=== PATIENT | male | born 1975 | race Caucasian/White ===

== ENCOUNTER 2020-10-21 06:50 | Outpatient (NON) | payer OTHER, SELFPAY ==
[2020-10-21 18:45] LABS: SARS-CoV-2 RNA PCR Negative
== END 2020-10-21 06:51 ==
PROVIDERS: PCP Nurse Practitioner Family; Visit Provider Nurse Practitioner Family
DX: J32.9 Chronic sinusitis, unspecified (principal); Z20.828 Contact with and (suspected) exposure to other viral communicable diseases
CPT/HCPCS: 87635; C9803; U0003

== ENCOUNTER 2020-12-02 11:57 | Outpatient (CLI) | payer OTHER, SELFPAY ==
[2020-12-02 17:36] LABS: Alanine Aminotransferase 63 U/L (4-50); Albumin Level 4.1 g/dL (3.5-5.1); Alkaline Phosphatase 77 U/L (38-126); Anion Gap 7 mmol/L (8-16); Aspartate Amino Transferase 59 U/L (17-59); Bilirubin,Total 0.5 mg/dL (0.2-1.3); Blood Urea Nitrogen 17 mg/dL (9-20); Calcium 9.1 mg/dL (8.4-10.2); Carbon Dioxide 30 mmol/L (22-30); Chloride 102 mmol/L (98-107); Estimated Glomerular Filt Rate > 60; Glucose 246 mg/dL (75-110); Potassium 4.4 mmol/L (3.4-5.0); Sodium 139 mmol/L (137-145)
== END 2020-12-02 11:58 | disposition home or self-care (01) ==
LOC: ANHLAB 11:59
PROVIDERS: PCP Nurse Practitioner Family; Visit Provider Nurse Practitioner Family
DX: R74.8 Abnormal levels of other serum enzymes (principal)
CPT/HCPCS: 36415; 80053

== ENCOUNTER 2021-03-13 10:57 | Outpatient (CLI) | payer OTHER, SELFPAY ==
--- NOTE | ~2021-03-13 | US_ITS ---
EXAMINATION: US abdomen limited EXAM DATE: 03/13/2021 11:28 INDICATION: Elevated liver enzymes. TECHNIQUE: Multiple grayscale and Doppler images of the abdomen right upper quadrant were obtained (b y a technologist who performed the scan) and subsequently reviewed. Comparison is made to prior exami nation from 03/31/2011. FINDINGS: The pancreatic head and body are normal in appearance. The pancreatic tail is not visualized. There is echogenic liver parenchyma with poor penetration, hepatic steatosis. There are no focal liver le sions identified. There is no evidence of intrahepatic biliary duct dilation. Portal venous flow w as seen in the hepatopedal, normal direction and has normal Doppler waveform. No right-sided hydrone phrosis. Common bile duct measures 4 mm, which is normal. The gallbladder wall is normal in thickness, with ex pected amount of distention. No sonographic evidence of pericholecystic fluid. There is no cholelit hiases. Technologist performing exam reports patient did not demonstrate sonographic Mansfield's sign. Please note that this sign is less reliable in patients who have received pain medication. IMPRESSION: 1. Hepatic steatosis. Reviewed, dictated and finalized at location A. IMPRESSION: 1. Hepatic steatosis.
== END 2021-03-13 10:58 | disposition home or self-care (01) ==
PROVIDERS: PCP Nurse Practitioner Family; Visit Provider Nurse Practitioner Family
DX: R74.8 Abnormal levels of other serum enzymes (principal); K76.0 Fatty (change of) liver, not elsewhere classified
CPT/HCPCS: 76705

== ENCOUNTER 2021-06-09 16:42 | Emergency (ER) | payer OTHER, SELFPAY ==
[2021-06-09 17:21] VITALS: BP 153/88; PULSE 70; RESP 18; TEMP 36.2; O2SAT 98
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
== END 2021-06-09 18:40 | disposition home or self-care (01) ==
PROVIDERS: Emergency Provider Emergency Medicine; PCP Nurse Practitioner Family
DX: S39.012A Strain of muscle, fascia and tendon of lower back, initial encounter (principal); V89.2XXA Person injured in unspecified motor-vehicle accident, traffic, initial encounter; F32.9 Major depressive disorder, single episode, unspecified; E11.9 Type 2 diabetes mellitus without complications; I10 Essential (primary) hypertension; E03.9 Hypothyroidism, unspecified
CPT/HCPCS: 99283

== ENCOUNTER 2022-09-23 19:12 | Inpatient (IN) | payer OTHER, SELFPAY ==
[2022-09-23] VITALS (8 sets, daily range): BP systolic 142–173; BP diastolic 89–96; PULSE 85–104; RESP 16–18; TEMP 36.3; O2SAT 95–97
--- NOTE | ~2022-09-23 | XR_ITS ---
EXAMINATION: XR chest 2V 09/23/2022 20:04 INDICATION: Chest pain and shortness of breath PROCEDURE: PA and lateral views of the chest COMPARISON: Comparison to multiple prior studies sequentially, with oldest reviewed study dated 11/2012. FINDINGS: The lungs are clear. The cardiomediastinal silhouette is within normal limits. There are no pleural effusions. There is no pneumothorax suspected. IMPRESSION: 1: NO ACUTE CARDIOPULMONARY DISEASE. Reviewed, dictated and finalized at location A. SHEAR OPERATOR
--- NOTE | 2022-09-23 19:13 | ECG_ITS ---
Measurements Intervals [place] Rate: 85 P: 44 DC: 233 QRS: 81 QRSD: 110 T: 69 QT: 347 QTc: 413 Interpretive Statements SINUS RHYTHM WITH FIRST DEGREE AV BLOCK LOW QRS VOLTAGE IN PRECORDIAL LEADS [QRS DEFLECTION < 1.0 mV IN CHEST LEADS] ANTERIOR MYOCARDIAL INFARCTION , OF INDETERMINATE AGE [40+ ms Q WAVE AND/OR ST/T ABNORMALITY IN V3/V4] COMPARED TO ECG 05/17/2019 15:17:35 MYOCARDIAL INFARCT FINDING NOW PRESENT Electronically Signed On 09-24-2022 10:18:34 DIRECTOR OF REGULATORY AFFAIRS by Gia Clark M.D.
[2022-09-23 19:40] LABS: Basophils Absolute Auto 0.1 K/mm3 (0.0-0.1); Basophils Percent Auto 0.7 % (0.2-1.2); Eosinophils Absolute Auto 0.2 K/mm3 (0-0.3); Eosinophils Percent Auto 1.4 % (0-4.4); Hematocrit 41.8 % (42.0-52.0); Hemoglobin 13.9 g/dL (14.0-18.0); Lymphocytes Absolute Auto 1.24 K/mm3 (0.9-3.2); Lymphocytes Percent Auto 11.9 % (18.3-44.2); Mean Corpuscular HGB Conc 33.3 g/dl (32-36); Mean Corpuscular Volume 90.1 fl (80-100); Mean Platelet Volume 10.2 fl (7.4-10.4); Monocytes Absolute Auto 0.6 K/mm3 (0.1-0.6); Monocytes Percent Auto 5.5 % (2.6-8.5); Neutrophils Absolute Auto 8.3 K/mm3 (1.3-6.7); Neutrophils Percent Auto 79.5 % (45.5-73.1); Platelet Count Result 200 k/mm3 (150-375); Red Blood Count 4.64 M/mm3 (4.6-6.20); Red Cell Distribution Width 13.1 % (11.5-14.5); White Blood Count 10.4 K/mm3 (4.5-10.0)
[2022-09-23 19:50] LABS: INR 1.1; Partial Thromboplastin Time 26.6 SECONDS (22.3-36.8); Prothrombin Time 13.6 Seconds (11.1-14.7)
[2022-09-23 19:55] LABS: Alanine Aminotransferase 68 U/L (6-50); Albumin Level 4.5 g/dL (3.5-5.1); Alkaline Phosphatase 63 U/L (38-126); Anion Gap 9 mmol/L (8-16); Aspartate Amino Transferase 55 U/L (17-59); Bilirubin,Total 0.5 mg/dL (0.2-1.3); Blood Urea Nitrogen 12 mg/dL (9-20); Calcium 8.8 mg/dL (8.4-10.2); Carbon Dioxide 27 mmol/L (22-30); Chloride 99 mmol/L (98-107); Estimated CRCL calculation 142 ml/min; Estimated Glomerular Filt Rate > 60; Glucose 212 mg/dL (65-110); Lipase 129 U/L (23-300); Potassium 4.2 mmol/L (3.4-5.0); Sodium 135 mmol/L (137-145)
[2022-09-23 20:11] LABS: Troponin I 0.262 ng/mL (0.000-0.034)
[2022-09-23] MEDS: NITROGLYCERIN SL 0.4 MG TABLET SUBLINGUAL (20:43)
--- NOTE | 2022-09-23 20:43 | ECG_ITS ---
Measurements Intervals [place] Rate: 88 P: 37 TN: 225 QRS: 101 QRSD: 106 T: 65 QT: 352 QTc: 427 Interpretive Statements SINUS RHYTHM WITH FIRST DEGREE AV BLOCK MARKED RIGHT AXIS DEVIATION [QRS AXIS > 100] LOW QRS VOLTAGE IN PRECORDIAL LEADS [QRS DEFLECTION < 1.0 mV IN CHEST LEADS] ANTERIOR MYOCARDIAL INFARCTION , OF INDETERMINATE AGE [40+ ms Q WAVE AND/OR ST/T ABNORMALITY IN V3/V4] COMPARED TO ECG 09/23/2022 19:23:12 NO SIGNIFICANT CHANGES Electronically Signed On 09-24-2022 10:19:27 [employer]IST by Gia Clark M.D.
--- NOTE | 2022-09-23 20:44 | ED.CHESTPAIN ---
HPI - Chest Pain General Chief Complaint: Chest Pain Stated Complaint: chest pain Time Seen by Provider: 09/23/22 20:26 History of Present Illness HPI narrative: 46-year-old male history of hypertension, diabetes presented with chest pain. Per patient around 8 in the morning he began having left-sided chest pain described as pressure-like radiating to left arm. The pain persisted so he presented to the ED for further evaluation. He reports that is worse with exercise. He denies diaphoresis, nausea vomiting, fevers chills, shortness of breath, abdominal pain, sick contacts, dysuria, diarrhea. He reports taking 81 mg of aspirin in the morning. He was given 325 mg of chewable aspirin by EMS on route. Related Data Home Medications Medication Instructions Recorded Confirmed atorvastatin 80 mg tablet 06/09/21 buspirone 5 mg tablet mg 06/09/21 gabapentin 600 mg tablet 06/09/21 glimepiride 2 mg tablet mg 06/09/21 levothyroxine 112 mcg tablet 06/09/21 metformin 1,000 mg tablet mg 06/09/21 Allergies Allergy/AdvReac Type Severity Reaction Status Date / Time levofloxacin Allergy Severe Anaphylactic Verified 09/23/22 19:29 Shock Quinolones Allergy Severe RASH AND Verified 09/23/22 19:29 S.O.B. codeine Allergy Mild RASH, Verified 09/23/22 19:29 SHORTNESS OF BREATH PMFSH Past Medical History Medical History Depression Diabetes Diverticulitis Hyperlipidemia Hypertension Hypothyroidism Surgical History Surgical History History of carpal tunnel surgery Family History Family History Mother Hypertension Acute myocardial infarction Father Family history of lymphoma Other Diabetes mellitus Family history of elevated blood lipids Social History Social History Smoking status: Never smoker Alcohol intake: never Gender identity (if verbalized by the patient): Male Exam Narrative: APPEARANCE: Alert, in apparent pain, unable to sit still, non diaphoretic, elevated BMI HEAD: atraumatic EYES: Pupils equal round an reactive to light, extra ocular movements intact, no conjunctival injection NOSE: Normal no drainage NECK: Supple, without meningismus RESPIRATORY: Lungs clear to auscultation bilaterally, no wheezes/rales/rhonchi, breathing comfortably CARDIOVASCULAR: Regular rate and rhythm, no visible jugular venous distension; POCUS: LV EF with grossly preserved EF, no gross evidence of RV strain, no pericaridal effusion ABDOMINAL: Soft, nontender, nondistended, no guarding, no rebound/peritoneal signs, no costovertebral tenderness to palpation BACK: no midline tenderness to palpation, no step offs EXTREMITIES: No edema, palpable peripheral pulses, warm, well perfused, no tenderness to bilateral calves. NEURO: Alert, moving all extremities symmetrically, ambulating with steady gait SKIN:: Warm, dry. Normal color PSYCHIATRIC: Normal affect/mood Course Course Emergency Course: Blood work reviewed. Notable for troponinemia at 0.2 in the setting of active chest pain. EKG reviewed, Q waves noted in V1, V2, V3, V4. Likely previous CAD. No evidence of ST elevations at this time. Will consult cardiology, repeat troponins, repeat EKGs. Will give sublingual nitroglycerin and morphine for analgesia. Anticipate admission Consultations Consultation #1: Concern for NSTEMI in the setting of active chest pain, troponemia 0.2. Patient already received 325mg aspirin by EMS. Cardiology consutled Date: 09/23/22 Time: 20:55 Consultation #2: Cardiology consulted, no need for PCI at this time. Heparin bolus and drip started. Hospitalist called. Given acute nature of presenting disease process and potential for decompensation, the patient would benefit from medical admission for further optimiz
[2022-09-23] MEDS: MORPHINE SULFATE (*CRX) 4 MG/ML INJ IV PUSH (20:45)
[2022-09-23] MEDS: ASPIRIN 81 MG CHEWABLE TABLET 324 MG PO (20:45)
[2022-09-23] MEDS: HEPARIN SODIUM 5,000 UNITS/ML VIAL 4000 UNITS IV PUSH (21:12)
[2022-09-23] MEDS: HEPARIN SOD/D5W 100 UNITS/ML 25,000 UNITS/250 ML BAG 10 UNITS IV CONT (21:13)
--- NOTE | 2022-09-23 21:14 | PM.IMHP ---
H&P: HPI History of Present Illness Date/Time: 09/23/22 21:14 Chief Complaint: 46 years old male with past medical history of hypertension diabetes mellitus presented to the hospital with left-sided chest pain started today at 8:00 a.m. worsening gradually worsening with activity improved with rest radiating to the left shoulder and left arm pressure-like did not improve with aspirin 81 mg patient aspirin 325 mg by EMS blood pressure was elevated in the ER EKG shows nonspecific changes troponin was elevated cardiology was consulted started heparin drip patient will give be given sublingual nitro patient will be admitted to the hospital for further evaluation and treatment of NSTEMI Patient has positive family history of cardiac disease both parents Review of Systems Review of Systems: Twelve system review was done negative except above [facility] Past Medical History Medical History (Updated 09/23/22 @ 21:17 by Ritika Levy MD) Depression Diabetes Diverticulitis Hyperlipidemia Hypertension Hypothyroidism Surgical History Surgical History History of carpal tunnel surgery Family History Family History Mother Hypertension Acute myocardial infarction Father Family history of lymphoma Other Diabetes mellitus Family history of elevated blood lipids Social History Social History Smoking status: Never smoker Alcohol intake: never Gender identity (if verbalized by the patient): Male Meds Home Medications and Allergies Home Medications Medication Instructions Recorded Confirmed Type atorvastatin 80 mg tablet 06/09/21 History buspirone 5 mg tablet mg 06/09/21 History cyclobenzaprine 10 mg tablet 10 mg PO TID PRN muscle spasm #20 06/09/21 Rx tabs gabapentin 600 mg tablet 06/09/21 History glimepiride 2 mg tablet mg 06/09/21 History levothyroxine 112 mcg tablet 06/09/21 History metformin 1,000 mg tablet mg 06/09/21 History naproxen 375 mg tablet 375 mg PO BID #14 tabs 06/09/21 Rx Allergies Allergy/AdvReac Type Severity Reaction Status Date / Time levofloxacin Allergy Severe Anaphylactic Verified 09/23/22 19:29 Shock Quinolones Allergy Severe RASH AND Verified 09/23/22 19:29 S.O.B. codeine Allergy Mild RASH, Verified 09/23/22 19:29 SHORTNESS OF BREATH Vital Signs Vital Signs - 24 hr 09/23/22 19:29 Temperature 97.4 F L Pulse Rate 86 Respiratory Rate 16 Blood Pressure 173/89 H Pulse Oximetry 97 Exam Narrative: GENERAL: Well appearing, well-nourished, non-toxic, in pain HEAD: Normocephalic, atraumatic. NECK: Supple. No adenopathy, no masses. RESPIRATORY: Airway patent, respirations nonlabored. Clear to auscultation bilaterally, no rales, rhonchi, wheezing. CARDIOVASCULAR: Regular rate and rhythm without murmurs, rubs, or gallops. Peripheral pulses 2+ and equal bilaterally. ABDOMINAL: Soft, nontender, nondistended, no hepatosplenomegaly. Normoactive BS. MUSCULOSKELETAL: Moves all extremities. Strength/ROM intact without gross deformities or TTP. No edema. No calf tenderness. No chest wall tenderness palpation. SKIN: Warm, dry, normal color. No rashes. NEURO: A&O X3. Speech clear. Cranial nerves II-XII grossly intact. Steady gait. No ataxic movements. PSYCHIATRIC: Appropriate mood and affect. Normal interaction. H&P: Results Labs Labs: Short CBC 09/23/22 Range/Units 19:34 WBC 10.4 H (4.5-10.0) K/mm3 Hgb 13.9 L (14.0-18.0) g/dL Hct 41.8 L (42.0-52.0) % Plt Count 200 (150-375) k/mm3 [facility] 09/23/22 19:34 Sodium 135 L Potassium 4.2 Chloride 99 Carbon Dioxide 27 BUN 12 D Creatinine 0.80 Glucose 212 H Calcium 8.8 Cardiac Enzymes 09/23/22 Range/Units 19:34 Troponin I 0.262 H* (0.000-0.034) ng/mL Liver Function
[2022-09-23 21:29] LABS: Basophils Absolute Auto 0.1 K/mm3 (0.0-0.1); Basophils Percent Auto 0.6 % (0.2-1.2); Eosinophils Absolute Auto 0.2 K/mm3 (0-0.3); Eosinophils Percent Auto 1.4 % (0-4.4); Hematocrit 41.1 % (42.0-52.0); Hemoglobin 13.7 g/dL (14.0-18.0); Immature Granulocyte Absolute 0.13 K/mm3 (0.00-0.031); Immature Granulocyte Percent A 1.1 % (0-0.5); Lymphocytes Absolute Auto 1.86 K/mm3 (0.9-3.2); Lymphocytes Percent Auto 15.8 % (18.3-44.2); Mean Corpuscular HGB Conc 33.3 g/dl (32-36); Mean Corpuscular Volume 90.1 fl (80-100); Mean Platelet Volume 10.2 fl (7.4-10.4); Monocytes Absolute Auto 0.7 K/mm3 (0.1-0.6); Monocytes Percent Auto 5.9 % (2.6-8.5); Neutrophils Absolute Auto 8.9 K/mm3 (1.3-6.7); Neutrophils Percent Auto 75.2 % (45.5-73.1); Platelet Count Result 222 k/mm3 (150-375); Red Blood Count 4.56 M/mm3 (4.6-6.20); Red Cell Distribution Width 13.2 % (11.5-14.5); White Blood Count 11.8 K/mm3 (4.5-10.0)
[2022-09-23 21:39] LABS: Cholesterol 144 mg/dL (0-200); HDL Direct 40 mg/dL; Triglycerides 127 mg/dL (<150)
[2022-09-23 21:40] LABS: INR 1.1; Prothrombin Time 13.6 Seconds (11.1-14.7)
[2022-09-23] MEDS: SIMVASTATIN 20 MG TABLET 40 MG PO (21:40)
[2022-09-23] MEDS: carvediloL 12.5 MG TABLET PO (21:40)
[2022-09-23 21:49] LABS: Amphetamine Screen Urine Negative (Negative); Barbiturate Screen Urine Negative (Negative); Benzodiazepines Screen Urine Negative (Negative); Cannabinoid Screen Urine Negative (Negative); Cocaine Screen Urine Negative (Negative); LDL Cholesterol Direct 75 mg/dL; Methadone Screen Urine Negative (Negative); Opiate Screen Urine Negative (Negative); Phencyclidine Screen Urine Negative (Negative)
[2022-09-23 22:05] LABS: Influenza A QL RT-PCR Negative (Negative); Influenza B QL RT-PCR Negative (Negative); RSV RNA, RT-PCR Negative (Negative); SARS-CoV-2 RNA PCR Negative
[2022-09-24] VITALS (12 sets, daily range): BP systolic 131–162; BP diastolic 68–98; PULSE 65–82; RESP 14–24; TEMP 36.3–36.7; O2SAT 92–97; BMI 49.1
[2022-09-24 04:24] LABS: Partial Thromboplastin Time 44.4 SECONDS (22.3-36.8)
[2022-09-24] MEDS: HEPARIN SODIUM 5,000 UNITS/ML VIAL 4000 UNITS IV PUSH (04:34)
--- NOTE | 2022-09-24 04:40 | PC.NURSE ---
critical troponin 4.33
--- NOTE | 2022-09-24 05:25 | ADMGEN ---
This patient, Leandro Turner, was admitted to [id number] at 0525. Patient/family oriented to hospital policies and general routines including ID bracelet, bed and alarms, visiting hours, pain management, procedures, bathroom and other care routines, personal items, smoking policy, room service/diet, and visiting hours. Information on how to activate the Rapid Response Team has been discussed. Patient/Family are encouraged to report perceived risks to care and to ask questions if they do not understand what they are told or what they should do.
--- NOTE | 2022-09-24 06:23 | PCRCNOTE ---
pt does not wear home unit, does not want Hospital CPAP, states they make him claustrophobic
[2022-09-24 07:46] LABS: Glucose Point of Care 167 mg/dl (65-105)
[2022-09-24 08:39] LABS: Alanine Aminotransferase 67 U/L (6-50); Albumin Level 4.1 g/dL (3.5-5.1); Alkaline Phosphatase 78 U/L (38-126); Anion Gap 8 mmol/L (8-16); Aspartate Amino Transferase 130 U/L (17-59); Bilirubin,Total 0.6 mg/dL (0.2-1.3); Blood Urea Nitrogen 12 mg/dL (9-20); Calcium 8.9 mg/dL (8.4-10.2); Carbon Dioxide 26 mmol/L (22-30); Chloride 99 mmol/L (98-107); Estimated CRCL calculation 162 ml/min; Estimated Glomerular Filt Rate > 60; Glucose 158 mg/dL (65-110); Potassium 4.2 mmol/L (3.4-5.0); Sodium 133 mmol/L (137-145)
--- NOTE | 2022-09-24 09:24 | PM.DDS ---
Discharge Summary Probable Cause of Probable Cause of : cardiac arrest 2.2 myocardial infarction Summary Hospital Course: admitted on 09/23 for cp and nstemi - no issues overnight around 820 am rapid response called, almost immediately nafisa farooq was called patient found unresponsive w agonal breathing and foudn to be in Vfib acls protocol was initiated for approx 25 minutes which was unsuccessful time of 851
--- NOTE | 2022-09-24 14:07 | PC.NURSE ---
This nurse saw V-fib on the monitor at 0819. Came in and patient was shaking all over, eyes rolled back in head, unresponsive, and gargling sounds coming from throat. Patient was immediately turned on left side and carotid pulse was checked and present. Rapid response was called at 0820. Patient was suctioned, and breathing improved. A short time later, patient began agonal breathing, bag/mask ventilation started. Pulse lost, CPR immediately started, [employer] called at 0827. See code documentation for further information.
== END 2022-09-24 08:51 | disposition expired | DRG 190 ==
LOC: ANHED 21:24 → ANHIMU 23:34
PROVIDERS: Emergency Medicine; Admitting Provider Internal Medicine; Emergency Provider Emergency Medicine; PCP Nurse Practitioner Family; Visit Provider Internal Medicine
DX: I21.4 Non-ST elevation (NSTEMI) myocardial infarction (principal); E11.9 Type 2 diabetes mellitus without complications; E03.9 Hypothyroidism, unspecified; I46.2 Cardiac arrest due to underlying cardiac condition; E78.5 Hyperlipidemia, unspecified; F32.9 Major depressive disorder, single episode, unspecified; I10 Essential (primary) hypertension; Z20.822 Contact with and (suspected) exposure to COVID-19; Z82.49 Family history of ischemic heart disease and other diseases of the circulatory system; Z83.3 Family history of diabetes mellitus; Z79.899 Other long term (current) drug therapy; Z88.5 Allergy status to narcotic agent
CPT/HCPCS: 36415; 71046; 80053; 80061; 80307; 82948; 83690; 84443; 84484; 85025; 85610; 85730; 87637; 92950; 93005; 96374; 99285; A9270; J0171; J0282; J1644; J2270; J3475